=== PATIENT | male | born 1955 ===

== ENCOUNTER 2022-01-26 07:49 | Outpatient (CLI) | payer OTHER, SELFPAY ==
--- NOTE | ~2022-01-26 | NM_ITS ---
EXAMINATION: NM bone scan whole body DATE: 01/26/2022 11:40 INDICATION: Malignant neoplasm of prostate. TECHNIQUE: 24.2 mCi Tc-99m HDP was administered intravenously. Delayed whole-body scintigrams were o btained. COMPARISON: There are no relevant imaging studies at our institution. FINDINGS: There is increased activity at the acromioclavicular sternoclavicular joints, likely osteoa rthritis. There is increased activity in the knees and hands, likely osteoarthritis. There is increas ed activity in right foot and left ankle, which may be from osteoarthritis or trauma. IMPRESSION: 1. No evidence of metastatic disease. Reviewed, dictated and finalized at location A.
== END 2022-01-26 07:50 | disposition home or self-care (01) ==
LOC: ANHIMG 07:56
PROVIDERS: Visit Provider Urology
DX: C61 Malignant neoplasm of prostate (principal)
CPT/HCPCS: 78306; A9561